=== PATIENT | male | born 1950 | race Caucasian/White ===

== ENCOUNTER → 2019-08-03 | Emergency (ER) | payer MEDICARE, OTHER ==
[~2019-08-03] VITALS: Ht 177.8 cm; Wt 86.2 kg
[~2019-08-03] MED LIST: InsuLIN REG 1unit/0.01ml Soln (100units/ml) IV ONE; SODIUM CHLORIDE 0.9% 1,000 ML IV ONE; cloNIDine HCL 0.1 MG TAB PO ONE
[2019-08-03 19:48] LABS: Basophils # (auto) 0.1 10 ^3/uL (0-0.2); Basophils % (auto) 0.9 % (0.0-2.0); Eosinophils # (auto) 0.4 10 ^3/uL (0-0.8); Eosinophils % (auto) 3.5 % (0.0-7.0); Hematocrit 47.3 % (41.0-53.0); Hemoglobin 15.8 g/dL (13.5-17.5); Lymphocytes % (auto) 27.6 % (10.0-50.0); Mean Corpuscular Hemoglobin 29.1 pg (28.0-32.0); Mean Corpuscular Hgb Conc. 33.3 g/dL (32.0-36.0); Mean Corpuscular Volume 87.5 fL (80.0-100.0); Monocytes % (auto) 9.5 % (0.0-12.0); Neutrophils # (auto) 6.3 10 ^3/uL (1.6-8.6); Neutrophils % (auto) 58.5 % (37.0-80.0); Nucleated Red Blood Cells % 0.1 %; Platelet Count (auto) 220 10^3/uL (140-450); Red Blood Cells 5.41 10^6/uL (4.5-5.90); Red Cell Distribution Width 12.7 % (11.8-14.3); White Blood Cell 10.7 10^3/uL (4.4-10.8)
[2019-08-03 20:03] LABS: INR 1.02 (0.9-1.15); Partial Thromboplastin Time 24.4 sec (23.64-32.05)
[2019-08-03 20:08] LABS: Albumin 3.3 g/dL (3.4-5.0); Anion Gap 7 (5-15); Blood Urea Nitrogen 18 mg/dL (7-18); Calcium 8.8 mg/dL (8.5-10.1); Carbon Dioxide 24 mmol/L (21-32); Chloride 99 mmol/L (98-107); Magnesium 2.4 mg/dL (1.6-2.6); Potassium 4.7 mmol/L (3.5-5.1); Sodium 130 mmol/L (136-145)
[2019-08-03 20:10] LABS: Alanine Aminotransferase 33 U/L (16-61); Aspartate Aminotransferase 22 U/L (15-37); BUN/Creatinine Ratio 15.3; Bilirubin, Total 0.5 mg/dL (0.2-1.0); GFR African American 79 mL/min; GFR Non-African American 65 mL/min; Total Protein 7.3 g/dL (6.4-8.2)
[2019-08-03 20:19] LABS: Alkaline Phosphatase 163 U/L (45-117)
[2019-08-03 20:21] LABS: Glucose 552 mg/dL (74-106)
[2019-08-03 22:41] LABS: Urine Bacteria NONE SEEN /hpf (None Seen); Urine Blood Negative /uL (Negative); Urine Specific Gravity 1.027 (1.001-1.035); Urine WBC 1 /hpf (0 - 3)
[2019-08-03 23:45] VITALS: BP 133/103
== END | disposition home or self-care (01) ==
LOC: EDBD 19:14 → ER 19:14
DX: E11.65 Type 2 diabetes mellitus with hyperglycemia (principal); R42 Dizziness and giddiness
CPT/HCPCS: 36415; 36600; 70450; 71045; 80053; 81001; 82010; 82140; 82805; 82962; 83735; 83880; 84484; 85025; 85610; 85730; 93005; 96361; 96374; 99285; J1815; J7030

== ENCOUNTER → 2019-08-08 | Emergency (ER) | payer MEDICARE ==
[~2019-08-08] VITALS: Ht 177.8 cm; Wt 86.2 kg
[~2019-08-08] MED LIST changes: -InsuLIN REG 1unit/0.01ml Soln (100units/ml) IV ONE; -cloNIDine HCL 0.1 MG TAB PO ONE
[2019-08-08 01:19] LABS: Basophils # (auto) 0.1 10 ^3/uL (0-0.2); Basophils % (auto) 1.2 % (0.0-2.0); Eosinophils # (auto) 0.3 10 ^3/uL (0-0.8); Eosinophils % (auto) 3.5 % (0.0-7.0); Hematocrit 43.5 % (41.0-53.0); Hemoglobin 14.6 g/dL (13.5-17.5); Lymphocytes # (auto) 3.5 10 ^3/uL (0.4-5.4); Lymphocytes % (auto) 34.4 % (10.0-50.0); Mean Corpuscular Hemoglobin 29.3 pg (28.0-32.0); Mean Corpuscular Hgb Conc. 33.6 g/dL (32.0-36.0); Mean Corpuscular Volume 87.4 fL (80.0-100.0); Monocytes # (auto) 1.1 10 ^3/uL (0-1.3); Monocytes % (auto) 10.8 % (0.0-12.0); Neutrophils # (auto) 5.1 10 ^3/uL (1.6-8.6); Neutrophils % (auto) 50.1 % (37.0-80.0); Nucleated Red Blood Cells % 0.1 %; Platelet Count (auto) 241 10^3/uL (140-450); Red Blood Cells 4.98 10^6/uL (4.5-5.90); Red Cell Distribution Width 13.1 % (11.8-14.3); White Blood Cell 10.1 10^3/uL (4.4-10.8)
[2019-08-08 01:35] LABS: Alanine Aminotransferase 31 U/L (16-61); Albumin 3.1 g/dL (3.4-5.0); Anion Gap 7 (5-15); Aspartate Aminotransferase 17 U/L (15-37); BUN/Creatinine Ratio 15.4; Blood Urea Nitrogen 16 mg/dL (7-18); Calcium 8.5 mg/dL (8.5-10.1); Carbon Dioxide 26 mmol/L (21-32); Chloride 102 mmol/L (98-107); GFR African American 92 mL/min; GFR Non-African American 76 mL/min; Glucose 367 mg/dL (74-106); Magnesium 2.2 mg/dL (1.6-2.6); Potassium 4.4 mmol/L (3.5-5.1); Sodium 135 mmol/L (136-145)
[2019-08-08 01:36] LABS: INR 1.07 (0.9-1.15); Partial Thromboplastin Time 25.4 sec (23.64-32.05)
[2019-08-08 01:41] LABS: Alkaline Phosphatase 116 U/L (45-117); Bilirubin, Total 0.6 mg/dL (0.2-1.0); Total Protein 6.9 g/dL (6.4-8.2)
[2019-08-08 02:08] LABS: Amylase 29 U/L (25-115); Lipase 283 U/L (73-393)
[2019-08-08 02:16] LABS: Urine Bacteria NONE SEEN /hpf (None Seen); Urine Blood Negative /uL (Negative); Urine Mucus FEW (None Seen); Urine Specific Gravity 1.024 (1.001-1.035); Urine WBC <1 /hpf (0 - 3)
[2019-08-08 02:50] VITALS: BP 146/104
== END | disposition home or self-care (01) ==
LOC: EDUNIT# 00:29 → EDBD 00:36 → ER 00:39
DX: N20.0 Calculus of kidney (principal); K59.00 Constipation, unspecified; E11.9 Type 2 diabetes mellitus without complications
CPT/HCPCS: 36415; 74176; 80053; 81001; 82010; 82150; 83690; 83735; 83880; 84484; 85025; 85610; 85730

== ENCOUNTER 2021-03-07 22:30 | Emergency (ER) | payer MEDICARE, OTHER ==
[~2021-03-07] VITALS: Ht 177.8 cm; Wt 83.9 kg
[2021-03-07 23:08] VITALS: BP 126/86
[2021-03-08 00:26] LABS: Basophils # (auto) 0.1 10 ^3/uL (0-0.2); Eosinophils # (auto) 0.1 10 ^3/uL (0-0.8); Eosinophils % (auto) 1.1 % (0.0-7.0); Hematocrit 44.9 % (41.0-53.0); Hemoglobin 15.1 g/dL (13.5-17.5); Lymphocytes # (auto) 2.6 10 ^3/uL (0.4-5.4); Lymphocytes % (auto) 27.1 % (10.0-50.0); Mean Corpuscular Hemoglobin 29.8 pg (28.0-32.0); Mean Corpuscular Hgb Conc. 33.7 g/dL (32.0-36.0); Mean Corpuscular Volume 88.6 fL (80.0-100.0); Monocytes # (auto) 0.8 10 ^3/uL (0-1.3); Monocytes % (auto) 8.9 % (0.0-12.0); Neutrophils # (auto) 5.8 10 ^3/uL (1.6-8.6); Neutrophils % (auto) 61.9 % (37.0-80.0); Nucleated Red Blood Cells % 0.1 %; Red Blood Cells 5.07 10^6/uL (4.5-5.90); Red Cell Distribution Width 12.6 % (11.8-14.3); White Blood Cell 9.4 10^3/uL (4.4-10.8)
[2021-03-08 01:15] LABS: Albumin 3.5 g/dL (3.4-5.0); Calcium 9.1 mg/dL (8.5-10.1); Potassium 4.1 mmol/L (3.5-5.1)
[2021-03-08 01:20] LABS: BUN/Creatinine Ratio 8.7; Bilirubin, Total 0.6 mg/dL (0.2-1.0); Total Protein 7.4 g/dL (6.4-8.2)
== END 2021-03-08 04:30 | disposition left against medical advice (07) ==
LOC: EDBD 22:30 → EDUNIT# 22:30 → EDBD 22:39 → ER 22:39
DX: E11.649 Type 2 diabetes mellitus with hypoglycemia without coma (principal)
CPT/HCPCS: 36415; 70450; 71045; 80053; 84484; 85025; 93005

== ENCOUNTER 2022-11-15 19:31 | Inpatient (IN) | payer BC, OTHER ==
[2022-11-15] VITALS (11 sets, daily range): BP systolic 121–172; BP diastolic 66–133; PULSE 68–103; RESP 18–20; TEMP 97.6–98.2; O2SAT 95–99
[~2022-11-15] VITALS: Ht 167.6 cm; Wt 79.9 kg
[2022-11-15] MEDS ORDERED: HEPARIN SODIUM (PORCINE) 5000 UNITS/ML 1ML VIAL IV ONE ×2 (20:00→20:15)
[2022-11-15] MEDS ORDERED: TICAGRELOR 90 MG TAB PO ONE ×2 (20:00→20:15)
[2022-11-15] MEDS ORDERED: ASPirin 325 MG TAB PO ONE (20:00)
[2022-11-15 20:12] LABS: Basophils # (auto) 0.1 10 ^3/uL (0-0.2); Basophils % (auto) 1.2 % (0.0-2.0); Eosinophils # (auto) 0.3 10 ^3/uL (0-0.8); Eosinophils % (auto) 3.7 % (0.0-7.0); Hematocrit 46.5 % (41.0-53.0); Hemoglobin 15.3 g/dL (13.5-17.5); Lymphocytes % (auto) 22.8 % (10.0-50.0); Mean Corpuscular Hemoglobin 29.1 pg (28.0-32.0); Mean Corpuscular Hgb Conc. 32.9 g/dL (32.0-36.0); Mean Corpuscular Volume 88.2 fL (80.0-100.0); Monocytes # (auto) 0.7 10 ^3/uL (0-1.3); Monocytes % (auto) 8.3 % (0.0-12.0); Neutrophils # (auto) 5.7 10 ^3/uL (1.6-8.6); Nucleated Red Blood Cells % 0.2 %; Red Blood Cells 5.27 10^6/uL (4.5-5.90); White Blood Cell 8.9 10^3/uL (4.4-10.8)
[2022-11-15] MEDS ORDERED: ATROPINE SULF 1 MG/10ml SYR ONE (20:14)
[2022-11-15] MEDS ORDERED: VERAPAMIL 2.5MG/ML INJ 2ML VIAL IV ONE (20:14)
[2022-11-15] MEDS ORDERED: LIDOCAINE 2%HCL (LOCAL ANESTH.) INJ 20ML MDV ONE (20:15)
[2022-11-15] MEDS ORDERED: fentaNYL CITRATE 100 MCG/2 ML VL ONE (20:15)
[2022-11-15] MEDS ORDERED: MIDAZOLAM HCL 2MG/2ML 2ml VIAL (1mg/ml) ONE (20:15)
[2022-11-15] MEDS ORDERED: HEPARIN IN NS 1000Units/500mL 1,500 ML ONE (20:16)
[2022-11-15] MEDS ORDERED: SODIUM CHL 0.9% 50 ML ONE (20:18)
[2022-11-15] MEDS ORDERED: ANGIOMAX 250 MG VIAL IV ONE (20:18)
[2022-11-15 20:31] LABS: INR 1.08 (0.9-1.15); Partial Thromboplastin Time 27.3 SEC (24.5-34.5); Prothrombin Time 11.3 sec (9.3-11.8)
[2022-11-15 20:32] LABS: Alanine Aminotransferase 13 U/L (7-40); Albumin 4.1 g/dL (3.2-4.8); Alkaline Phosphatase 111 U/L (46-116); Anion Gap 10.4 (5-15); Aspartate Aminotransferase 17 U/L (13-40); BUN/Creatinine Ratio 10.9 (10.0-20.0); Bilirubin, Total 1.2 mg/dL (0.2-1.0); Blood Urea Nitrogen 10 mg/dL (9-23); Carbon Dioxide 23.6 mmol/L (20-30); Chloride 104 mmol/L (98-107); Cholesterol 158 mg/dL (< 200); Glucose 265 mg/dL (74-106); HDL Cholesterol 36 mg/dL (40-59); LDL Cholesterol 106 mg/dL (< 100); Potassium 4.2 mmol/L (3.5-5.1); Sodium 138 mmol/L (136-145); Triglycerides 186 mg/dL (< 150)
[2022-11-15 20:33] LABS: Total Protein 6.6 g/dL (5.7-8.2)
[2022-11-15] MEDS ORDERED: IODIXANOL 320MG/ML 100ML BTL IV ONE (20:36)
[2022-11-15] MEDS ORDERED: EPINEPHrine HCL 1 MG/10 ML SYRG ONE (20:41)
[2022-11-15] MEDS ORDERED: DEXTROSE (50%) 50ML SYRG IV ONE (23:30)
[2022-11-15] MEDS ORDERED: hydrALAZINE HCL 20 MG/ML VL IV ONE (23:30)
[2022-11-16] VITALS (13 sets, daily range): BP systolic 94–137; BP diastolic 40–81; PULSE 59–152; RESP 16–20; TEMP 97.6–98.6; O2SAT 94–99
[2022-11-16] MEDS: ACCU-CHEK COMFORT CURVE STRIP VI SCH ×6 (00:43→22:28)
[2022-11-16] MEDS: InsuLIN REG 1unit/0.01ml Soln (100units/ml) SC SCH ×5 (00:44→22:20)
[2022-11-16] MEDS: MORPHINE SULFATE INJ 2 MG/ml SYRG IV PRN ×2 (02:29→17:53)
[2022-11-16 06:06] LABS: Basophils # (auto) 0.1 10 ^3/uL (0-0.2); Basophils % (auto) 0.7 % (0.0-2.0); Eosinophils # (auto) 0.3 10 ^3/uL (0-0.8); Eosinophils % (auto) 2.2 % (0.0-7.0); Hematocrit 45.6 % (41.0-53.0); Hemoglobin 15.4 g/dL (13.5-17.5); Lymphocytes # (auto) 2.3 10 ^3/uL (0.4-5.4); Lymphocytes % (auto) 20.8 % (10.0-50.0); Mean Corpuscular Hemoglobin 29.4 pg (28.0-32.0); Mean Corpuscular Hgb Conc. 33.6 g/dL (32.0-36.0); Mean Corpuscular Volume 87.5 fL (80.0-100.0); Monocytes # (auto) 1.1 10 ^3/uL (0-1.3); Monocytes % (auto) 9.8 % (0.0-12.0); Neutrophils # (auto) 7.5 10 ^3/uL (1.6-8.6); Neutrophils % (auto) 66.5 % (37.0-80.0); Nucleated Red Blood Cells % 0.1 %; Red Blood Cells 5.22 10^6/uL (4.5-5.90); Red Cell Distribution Width 12.9 % (11.8-14.3); White Blood Cell 11.3 10^3/uL (4.4-10.8)
[2022-11-16] MEDS ORDERED: MORPHINE SULFATE INJ 2 MG/ml SYRG IV PRN (06:15)
[2022-11-16] MEDS ORDERED: hydrALAZINE HCL 10 MG TAB PO PRN (06:15)
[2022-11-16] MEDS ORDERED: ONDANSETRON HCL 4 MG/2 ML VIAL IV PRN (06:15)
[2022-11-16 06:22] LABS: Alanine Aminotransferase 27 U/L (7-40); Albumin 3.8 g/dL (3.2-4.8); Alkaline Phosphatase 102 U/L (46-116); Anion Gap 8.3 (5-15); Aspartate Aminotransferase 167 U/L (13-40); BUN/Creatinine Ratio 12.1 (10.0-20.0); Blood Urea Nitrogen 11 mg/dL (9-23); Calcium 8.9 mg/dL (8.7-10.4); Carbon Dioxide 23.7 mmol/L (20-30); Chloride 106 mmol/L (98-107); Glucose 209 mg/dL (74-106); Sodium 138 mmol/L (136-145)
[2022-11-16 06:23] LABS: Bilirubin, Total 1.2 mg/dL (0.2-1.0); Total Protein 6.2 g/dL (5.7-8.2)
[2022-11-16] MEDS ORDERED: METF-370 PO (07:45)
[2022-11-16] MEDS ORDERED: SEMA2INJ3 SC (07:45)
[2022-11-16] MEDS ORDERED: FURO40TA4 PO (07:45)
[2022-11-16] MEDS ORDERED: TAMS0.4C36 PO (07:45)
[2022-11-16] MEDS ORDERED: APIX5TAB PO (07:45)
[2022-11-16] MEDS ORDERED: SIMV20TA20 PO (07:45)
[2022-11-16] MEDS ORDERED: POTA-180 (07:45)
[2022-11-16] MEDS ORDERED: METO-289 PO (07:45)
[2022-11-16] MEDS ORDERED: METOPROLOL SUCCINATE XL 50 MG TAB PO SCH (10:00)
[2022-11-16 10:35] LABS: Hepatitis B Surface Antigen Negative (Negative)
[2022-11-16 10:56] LABS: Hepatitis C Antibody Negative (Negative)
[2022-11-16] MEDS: ASPirin-EC 81 mg tab PO SCH (11:45)
[2022-11-16] MEDS: metFORMIN HYDROCHLORIDE 500 MG TAB PO SCH (13:38)
[2022-11-16] MEDS: NITROGLYCERIN 0.4 MG SL TAB SL PRN ×2 (17:51→17:57)
[2022-11-16] MEDS: SOD CHL 0.45% 1,000 ML IV SCH (18:22)
[2022-11-16] MEDS ORDERED: TICAGRELOR 90 MG TAB PO STA (18:28)
[2022-11-16] MEDS ORDERED: ENOXAPARIN SOD 80 MG/0.8ML SYRINGE SC ONE (18:45)
[2022-11-16] MEDS ORDERED: IBUP-1454 PO (20:01)
[2022-11-16] MEDS ORDERED: ATORVASTATIN 20 MG TAB PO SCH (22:00)
[2022-11-16] MEDS ORDERED: TICAGRELOR 90 MG TAB PO SCH (22:00)
[2022-11-17] VITALS (10 sets, daily range): BP systolic 106–135; BP diastolic 57–101; PULSE 61–108; RESP 12–23; TEMP 98.3; O2SAT 94–98
[2022-11-17 00:19] LABS: Urine Bacteria NONE SEEN /hpf (None Seen); Urine Blood Negative /uL (Negative); Urine Clarity Clear (Clear); Urine Color Yellow (Yellow); Urine Mucus FEW (None Seen); Urine Protein, UAD Negative (Negative); Urine Specific Gravity 1.019 (1.001-1.035); Urine Urobilinogen Normal (Negative); Urine WBC 1 /hpf (0 - 3); Urine pH 6.5 (5.0-8.0)
[2022-11-17 05:52] LABS: Basophils # (auto) 0.1 10 ^3/uL (0-0.2); Basophils % (auto) 0.7 % (0.0-2.0); Eosinophils # (auto) 0.3 10 ^3/uL (0-0.8); Eosinophils % (auto) 2.2 % (0.0-7.0); Hematocrit 45.1 % (41.0-53.0); Hemoglobin 14.9 g/dL (13.5-17.5); Lymphocytes # (auto) 2.7 10 ^3/uL (0.4-5.4); Lymphocytes % (auto) 22.9 % (10.0-50.0); Mean Corpuscular Hemoglobin 28.8 pg (28.0-32.0); Mean Corpuscular Hgb Conc. 33.1 g/dL (32.0-36.0); Mean Corpuscular Volume 87.1 fL (80.0-100.0); Monocytes # (auto) 1.1 10 ^3/uL (0-1.3); Monocytes % (auto) 9.5 % (0.0-12.0); Neutrophils # (auto) 7.6 10 ^3/uL (1.6-8.6); Neutrophils % (auto) 64.7 % (37.0-80.0); Red Blood Cells 5.17 10^6/uL (4.5-5.90); Red Cell Distribution Width 13.3 % (11.8-14.3); White Blood Cell 11.8 10^3/uL (4.4-10.8)
[2022-11-17 06:08] LABS: Alanine Aminotransferase 20 U/L (7-40); Albumin 3.8 g/dL (3.2-4.8); Alkaline Phosphatase 93 U/L (46-116); Anion Gap 7.5 (5-15); Aspartate Aminotransferase 74 U/L (13-40); BUN/Creatinine Ratio 10.2 (10.0-20.0); Blood Urea Nitrogen 9 mg/dL (9-23); Calcium 8.8 mg/dL (8.7-10.4); Carbon Dioxide 22.5 mmol/L (20-30); Chloride 107 mmol/L (98-107); Glucose 171 mg/dL (74-106); Sodium 137 mmol/L (136-145)
[2022-11-17 06:09] LABS: Bilirubin, Total 1.4 mg/dL (0.2-1.0); Total Protein 6.5 g/dL (5.7-8.2)
[2022-11-17] MEDS: InsuLIN REG 1unit/0.01ml Soln (100units/ml) SC SCH ×2 (06:25→11:14)
[2022-11-17] MEDS: ACCU-CHEK COMFORT CURVE STRIP VI SCH ×2 (06:29→11:14)
[2022-11-17] MEDS ORDERED: EMPAGLIFLOZIN 10 MG TAB PO SCH (07:00)
[2022-11-17] MEDS ORDERED: TICAGRELOR 90 MG TAB PO SCH (07:00)
[2022-11-17] MEDS ORDERED: glipiZIDE 5 MG TAB PO SCH (07:00)
[2022-11-17] MEDS: SOD CHL 0.45% 1,000 ML IV SCH (07:35)
[2022-11-17] MEDS: metFORMIN HYDROCHLORIDE 500 MG TAB PO SCH (07:36)
[2022-11-17] MEDS ORDERED: IODIXANOL 320MG/ML 100ML BTL IV ONE ×4 (07:42→09:01)
[2022-11-17] MEDS ORDERED: MIDAZOLAM HCL 2MG/2ML 2ml VIAL (1mg/ml) ONE (07:42)
[2022-11-17] MEDS ORDERED: fentaNYL CITRATE 100 MCG/2 ML VL ONE (07:42)
[2022-11-17] MEDS ORDERED: LIDOCAINE 2%HCL (LOCAL ANESTH.) INJ 20ML MDV ONE (07:42)
[2022-11-17] MEDS ORDERED: SODIUM CHL 0.9% 50 ML ONE ×2 (07:42→08:32)
[2022-11-17] MEDS ORDERED: ANGIOMAX 250 MG VIAL IV ONE ×2 (07:42→08:32)
[2022-11-17] MEDS ORDERED: VERAPAMIL 2.5MG/ML INJ 2ML VIAL IV ONE (07:45)
[2022-11-17] MEDS ORDERED: HEPARIN SODIUM (PORCINE) 5000 UNITS/ML 1ML VIAL ONE (07:45)
[2022-11-17] MEDS: MORPHINE SULFATE INJ 2 MG/ml SYRG IV PRN (09:45)
[2022-11-17] MEDS: ASPirin-EC 81 mg tab PO SCH (09:52)
[2022-11-17] MEDS ORDERED: METOPROLOL SUCCINATE XL 50 MG TAB PO SCH (10:00)
[2022-11-17] MEDS ORDERED: LISINOPRIL 5 MG TAB PO SCH (10:00)
[2022-11-17] MEDS ORDERED: RANOLAZINE ER 500 MG TAB PO SCH (10:00)
[2022-11-17] MEDS: NITROGLYCERIN 0.4 MG SL TAB SL PRN ×2 (10:35→10:59)
== END 2022-11-17 14:39 | disposition left against medical advice (07) | DRG 246 ==
LOC: EDBD 19:31 → ER 19:31 → TELE 20:58 → TELE-WESTW 22:15
PROVIDERS: ADMIT Internal Medicine Interventional Cardiology; ATTEND Hospitalist
PROC: 027037Z Dilation of Coronary Artery, One Artery with Four or More Drug-eluting Intraluminal Devices, Percutaneous Approach (ICD-10-PCS; principal; 2022-11-15)
PROC: 4A023N7 Measurement of Cardiac Sampling and Pressure, Left Heart, Percutaneous Approach (ICD-10-PCS; 2022-11-15)
PROC: B211YZZ Fluoroscopy of Multiple Coronary Arteries using Other Contrast (ICD-10-PCS; 2022-11-15)
PROC: 027137Z Dilation of Coronary Artery, Two Arteries with Four or More Drug-eluting Intraluminal Devices, Percutaneous Approach (ICD-10-PCS; 2022-11-17)
DX: I21.02 ST elevation (STEMI) myocardial infarction involving left anterior descending coronary artery (principal); E11.9 Type 2 diabetes mellitus without complications; I25.10 Atherosclerotic heart disease of native coronary artery without angina pectoris; I10 Essential (primary) hypertension; Z82.49 Family history of ischemic heart disease and other diseases of the circulatory system; Z83.3 Family history of diabetes mellitus; Z86.73 Personal history of transient ischemic attack (TIA), and cerebral infarction without residual deficits; Z53.29 Procedure and treatment not carried out because of patient's decision for other reasons
CPT/HCPCS: 36415; 71045; 76937; 80053; 80061; 81001; 82962; 83036; 83735; 83880; 84443; 84484; 85025; 85610; 85730; 86803; 86850; 86900; 86901; 87340; 92929; 92941; 93005; 93306; 93458; 96374; 99152; C1874; C1887; G0378; J1815; J2250; Q9967

== ENCOUNTER 2022-11-25 11:23 | Inpatient (IN) | payer BC ==
[~2022-11-25] VITALS: Ht 167.6 cm; Wt 77.9 kg
[~2022-11-25 11:23] MED LIST changes: +APIX5TAB PO; +FURO40TA4 PO; +IBUP-1454 PO; +METF-370 PO; +METO-289 PO; +POTA-180; +SEMA2INJ3 SC; +SIMV20TA20 PO; -SODIUM CHLORIDE 0.9% 1,000 ML IV ONE; +TAMS0.4C36 PO
[2022-11-25] MEDS ORDERED: ONDANSETRON HCL 4 MG/2 ML VIAL IV ONE (12:15)
[2022-11-25] MEDS ORDERED: SODIUM CHLORIDE 0.9% 1,000 ML IV ONE (12:15)
[2022-11-25] MEDS ORDERED: MORPHINE SULFATE 4 MG/ML SYR/VIAL IV PRN (12:15)
[2022-11-25 12:33] LABS: Basophils # (auto) 0.1 10 ^3/uL (0-0.2); Basophils % (auto) 0.7 % (0.0-2.0); Eosinophils # (auto) 0.3 10 ^3/uL (0-0.8); Eosinophils % (auto) 2.7 % (0.0-7.0); Hematocrit 38.1 % (41.0-53.0); Hemoglobin 12.7 g/dL (13.5-17.5); Lymphocytes # (auto) 2.3 10 ^3/uL (0.4-5.4); Lymphocytes % (auto) 21.6 % (10.0-50.0); Mean Corpuscular Hemoglobin 29.1 pg (28.0-32.0); Mean Corpuscular Hgb Conc. 33.4 g/dL (32.0-36.0); Mean Corpuscular Volume 87.1 fL (80.0-100.0); Monocytes % (auto) 9.4 % (0.0-12.0); Neutrophils % (auto) 65.6 % (37.0-80.0); Red Blood Cells 4.38 10^6/uL (4.5-5.90); Red Cell Distribution Width 12.6 % (11.8-14.3); White Blood Cell 10.7 10^3/uL (4.4-10.8)
[2022-11-25 12:35] VITALS: PULSE 69; RESP 12; O2SAT 97
[2022-11-25 12:42] LABS: Alanine Aminotransferase 15 U/L (7-40); Albumin 3.9 g/dL (3.2-4.8); Alkaline Phosphatase 96 U/L (46-116); Aspartate Aminotransferase 14 U/L (13-40); BUN/Creatinine Ratio 8.3 (10.0-20.0); Bilirubin, Total 0.5 mg/dL (0.2-1.0); Blood Urea Nitrogen 8 mg/dL (9-23); Calcium 8.7 mg/dL (8.5-10.1); Chloride 105 mmol/L (98-107); Glucose 200 mg/dL (74-106); Magnesium 1.9 mg/dL (1.6-2.6); Sodium 136 mmol/L (136-145); Total Protein 6.7 g/dL (5.7-8.2)
[2022-11-25 13:23] LABS: INR 1.14 (0.9-1.15); Partial Thromboplastin Time 29.1 SEC (24.5-34.5); Prothrombin Time 11.9 sec (9.3-11.8)
[2022-11-25] MEDS ORDERED: PANTOPRAZOLE 40 MG/10 ML VIAL INJ IV ONE (14:30)
[2022-11-25] MEDS ORDERED: MORPHINE SULFATE INJ 2 MG/ml SYRG IV ONE (14:30)
[2022-11-25] MEDS ORDERED: ONDANSETRON HCL 4 MG/2 ML VIAL IV PRN (15:45)
[2022-11-25] MEDS ORDERED: HEPARIN DRIP/D5W 100UNITS/ML 250 ML IV SCH (15:45)
[2022-11-25] MEDS ORDERED: MORPHINE SULFATE INJ 2 MG/ml SYRG IV PRN ×2 (15:45)
[2022-11-25] MEDS ORDERED: NITROGLYCERIN 0.4 MG SL TAB SL PRN (15:45)
[2022-11-25] MEDS ORDERED: HEPARIN SODIUM (PORCINE) 5000 UNITS/ML 1ML VIAL IV ONE ×2 (15:45→17:30)
[2022-11-25 16:11] LABS: Basophils # (auto) 0.1 10 ^3/uL (0-0.2); Basophils % (auto) 0.7 % (0.0-2.0); Eosinophils # (auto) 0.2 10 ^3/uL (0-0.8); Eosinophils % (auto) 1.7 % (0.0-7.0); Hematocrit 36.8 % (41.0-53.0); Hemoglobin 12.1 g/dL (13.5-17.5); Lymphocytes # (auto) 2.3 10 ^3/uL (0.4-5.4); Lymphocytes % (auto) 19.8 % (10.0-50.0); Mean Corpuscular Hemoglobin 28.6 pg (28.0-32.0); Mean Corpuscular Hgb Conc. 32.8 g/dL (32.0-36.0); Monocytes % (auto) 8.5 % (0.0-12.0); Neutrophils # (auto) 8.1 10 ^3/uL (1.6-8.6); Neutrophils % (auto) 69.3 % (37.0-80.0); Nucleated Red Blood Cells % 0.1 %; Red Blood Cells 4.23 10^6/uL (4.5-5.90); Red Cell Distribution Width 12.8 % (11.8-14.3); White Blood Cell 11.6 10^3/uL (4.4-10.8)
[2022-11-25 17:13] LABS: INR 1.13 (0.9-1.15); Partial Thromboplastin Time 29.6 SEC (24.5-34.5); Prothrombin Time 11.8 sec (9.3-11.8)
[2022-11-25] MEDS: SODIUM CHLORIDE 0.9% 1,000 ML IV SCH (17:15)
[2022-11-25 17:22] LABS: Lipase 51 U/L (12-53)
[2022-11-25 17:23] LABS: Amylase 44 U/L (30-118)
[2022-11-25] MEDS ORDERED: LISI2.5T47 PO (17:43)
[2022-11-25] MEDS ORDERED: ASPirin 325 MG TAB PO ONE (17:45)
[2022-11-25] MEDS: CLOPIDOGREL 300 MG TAB PO ONE ×2 (17:55→18:18)
[2022-11-25 18:11] VITALS: PULSE 72; RESP 16; O2SAT 95
[2022-11-25 20:10] VITALS: PULSE 80; RESP 15; O2SAT 93
[2022-11-25] MEDS ORDERED: APIXABAN 5 MG TAB PO SCH (22:00)
[2022-11-25] MEDS: ATORVASTATIN 20 MG TAB PO SCH (22:25)
[2022-11-26] MEDS: SODIUM CHLORIDE 0.9% 1,000 ML IV SCH ×3 (00:05→16:50)
[2022-11-26 00:13] LABS: INR 1.13 (0.9-1.15); Partial Thromboplastin Time 37.8 SEC (24.5-34.5); Prothrombin Time 11.8 sec (9.3-11.8)
[2022-11-26] MEDS ORDERED: DEXTROSE (50%) 50ML SYRG IV PRN (02:15)
[2022-11-26 06:11] LABS: Basophils # (auto) 0.1 10 ^3/uL (0-0.2); Basophils % (auto) 0.5 % (0.0-2.0); Eosinophils # (auto) 0.1 10 ^3/uL (0-0.8); Eosinophils % (auto) 0.5 % (0.0-7.0); Hematocrit 36.3 % (41.0-53.0); Hemoglobin 12.2 g/dL (13.5-17.5); INR 1.16 (0.9-1.15); Lymphocytes # (auto) 1.6 10 ^3/uL (0.4-5.4); Lymphocytes % (auto) 11.5 % (10.0-50.0); Mean Corpuscular Hemoglobin 29.1 pg (28.0-32.0); Mean Corpuscular Hgb Conc. 33.6 g/dL (32.0-36.0); Mean Corpuscular Volume 86.7 fL (80.0-100.0); Monocytes # (auto) 1.3 10 ^3/uL (0-1.3); Monocytes % (auto) 9.3 % (0.0-12.0); Neutrophils # (auto) 11.2 10 ^3/uL (1.6-8.6); Neutrophils % (auto) 78.2 % (37.0-80.0); Partial Thromboplastin Time 38.3 SEC (24.5-34.5); Prothrombin Time 12.1 sec (9.3-11.8); Red Blood Cells 4.19 10^6/uL (4.5-5.90); Red Cell Distribution Width 12.8 % (11.8-14.3); White Blood Cell 14.3 10^3/uL (4.4-10.8)
[2022-11-26 06:23] LABS: Alanine Aminotransferase 12 U/L (7-40); Alkaline Phosphatase 89 U/L (46-116); Aspartate Aminotransferase 14 U/L (13-40); BUN/Creatinine Ratio 8.9 (10.0-20.0); Blood Urea Nitrogen 7 mg/dL (9-23); Calcium 8.6 mg/dL (8.5-10.1); Chloride 103 mmol/L (98-107); Glucose 168 mg/dL (74-106); Potassium 4.1 mmol/L (3.5-5.1); Sodium 134 mmol/L (136-145)
[2022-11-26 06:24] LABS: Albumin 3.7 g/dL (3.2-4.8); Bilirubin, Total 0.7 mg/dL (0.2-1.0); Total Protein 6.4 g/dL (5.7-8.2)
[2022-11-26 06:25] LABS: Anion Gap 7.4 (5-15); Carbon Dioxide 23.6 mmol/L (20-30)
[2022-11-26] MEDS: InsuLIN REG 1unit/0.01ml Soln (100units/ml) SC SCH ×3 (06:57→17:41)
[2022-11-26] MEDS: ACCU-CHEK COMFORT CURVE STRIP VI SCH ×3 (06:57→17:41)
[2022-11-26] MEDS ORDERED: HEPARIN DRIP/D5W 100UNITS/ML 250 ML IV SCH (07:30)
[2022-11-26 08:41] VITALS: PULSE 78; RESP 20; O2SAT 94
[2022-11-26] MEDS: FUROSEMIDE 40 MG TAB PO SCH (10:00)
[2022-11-26] MEDS: METOPROLOL SUCCINATE XL 50 MG TAB PO SCH (10:53)
[2022-11-26] MEDS: CLOPIDOGREL BISULFATE 75 MG TAB PO SCH ×2 (10:55→12:41)
[2022-11-26] MEDS: ASPirin 81 mg TAB PO SCH ×2 (10:55→12:41)
[2022-11-26 11:28] LABS: Amphetamine Screen, Urine Neg (NEGATIVE); Benzodiazephine Screen, Urine Neg (NEGATIVE)
[2022-11-26 11:29] LABS: Barbiturate Scree,Urine Neg (NEGATIVE); Cannabinoid Screen, Urine Neg (NEGATIVE); Cocaine Screen, Urine Neg (NEGATIVE); Opiate Scree,Urine Neg (NEGATIVE); Phencyclidine Screen, Urine Neg (NEGATIVE)
[2022-11-26 12:27] LABS: Urine Bacteria NONE SEEN /hpf (None Seen); Urine Blood Negative /uL (Negative); Urine Clarity Clear (Clear); Urine Color Yellow (Yellow); Urine Protein, UAD Negative (Negative); Urine Specific Gravity 1.014 (1.001-1.035); Urine Urobilinogen Normal (Negative); Urine WBC <1 /hpf (0 - 3); Urine pH 5.5 (5.0-8.0)
[2022-11-26] MEDS: HEPARIN DRIP/D5W 100UNITS/ML 250 ML IV SCH (14:26)
[2022-11-26] MEDS: ACETAMINOPHEN 325 MG TAB PO PRN (18:37)
[2022-11-26 19:40] VITALS: RESP 22; O2SAT 94
[2022-11-26 21:05] LABS: INR 1.38 (0.9-1.15); Partial Thromboplastin Time 65.9 SEC (24.5-34.5); Prothrombin Time 14.2 sec (9.3-11.8)
[2022-11-26 22:00] VITALS: BP 110/65; PULSE 88; RESP 16; TEMP 99.2; O2SAT 96
[2022-11-26 22:28] VITALS: BP 110/65; PULSE 88; RESP 16; TEMP 99.2; O2SAT 96
[2022-11-26] MEDS: ATORVASTATIN 20 MG TAB PO SCH (22:54)
[2022-11-27] VITALS (7 sets, daily range): BP systolic 106–126; BP diastolic 50–72; PULSE 65–105; RESP 15–20; TEMP 98–100; O2SAT 90–96
[2022-11-27] MEDS: ACCU-CHEK COMFORT CURVE STRIP VI SCH ×5 (01:01→21:30)
[2022-11-27] MEDS: InsuLIN REG 1unit/0.01ml Soln (100units/ml) SC SCH ×5 (01:09→21:29)
[2022-11-27 04:27] LABS: INR 1.4 (0.9-1.15); Prothrombin Time 14.4 sec (9.3-11.8)
[2022-11-27 04:32] LABS: Partial Thromboplastin Time 76.9 SEC (24.5-34.5)
[2022-11-27] MEDS: HEPARIN DRIP/D5W 100UNITS/ML 250 ML IV SCH (04:53)
[2022-11-27] MEDS: SODIUM CHLORIDE 0.9% 1,000 ML IV SCH ×3 (04:56→17:40)
[2022-11-27] MEDS: EMPAGLIFLOZIN 10 MG TAB PO SCH (06:03)
[2022-11-27] MEDS: ASPirin 81 mg TAB PO SCH (12:12)
[2022-11-27] MEDS: CLOPIDOGREL BISULFATE 75 MG TAB PO SCH (12:13)
[2022-11-27] MEDS: FUROSEMIDE 40 MG TAB PO SCH (12:13)
[2022-11-27] MEDS: METOPROLOL SUCCINATE XL 50 MG TAB PO SCH (12:13)
[2022-11-27 12:30] LABS: INR 1.54 (0.9-1.15); Partial Thromboplastin Time 49.4 SEC (24.5-34.5); Prothrombin Time 15.7 sec (9.3-11.8)
[2022-11-27] MEDS ORDERED: HEPARIN DRIP/D5W 100UNITS/ML 250 ML IV SCH (13:00)
[2022-11-27] MEDS: ACETAMINOPHEN 325 MG TAB PO PRN (21:13)
[2022-11-27] MEDS: ATORVASTATIN 20 MG TAB PO SCH (21:14)
[2022-11-27] MEDS: LACTULOSE 20Gm/30ML SOLN PO SCH (21:14)
[2022-11-28] MEDS: SODIUM CHLORIDE 0.9% 1,000 ML IV SCH ×3 (02:05→17:45)
[2022-11-28 05:00] VITALS: BP 102/63; PULSE 95; RESP 20; TEMP 99; O2SAT 97
[2022-11-28] MEDS: LACTULOSE 20Gm/30ML SOLN PO SCH ×3 (05:29→23:07)
[2022-11-28] MEDS: ACCU-CHEK COMFORT CURVE STRIP VI SCH ×4 (05:29→23:07)
[2022-11-28] MEDS: EMPAGLIFLOZIN 10 MG TAB PO SCH (05:29)
[2022-11-28] MEDS: InsuLIN REG 1unit/0.01ml Soln (100units/ml) SC SCH ×4 (05:29→23:18)
[2022-11-28 08:30] VITALS: PULSE 100; PULSE 115; RESP 20; O2SAT 96
[2022-11-28 09:11] VITALS: BP 116/65; PULSE 104; RESP 19; TEMP 98; O2SAT 98
[2022-11-28] MEDS: CLOPIDOGREL BISULFATE 75 MG TAB PO SCH (09:42)
[2022-11-28] MEDS: ASPirin 81 mg TAB PO SCH (09:42)
[2022-11-28] MEDS: METOPROLOL SUCCINATE XL 50 MG TAB PO SCH (09:43)
[2022-11-28] MEDS: FUROSEMIDE 40 MG TAB PO SCH (09:43)
[2022-11-28 13:00] VITALS: BP 115/65; PULSE 110; RESP 19; TEMP 98.9; O2SAT 94
[2022-11-28 20:00] VITALS: PULSE 105; PULSE 125; RESP 20; O2SAT 95
[2022-11-28 22:00] VITALS: BP 103/57; PULSE 105; RESP 20; TEMP 97.6; O2SAT 95
[2022-11-28] MEDS: ATORVASTATIN 20 MG TAB PO SCH (23:07)
[2022-11-29] VITALS (7 sets, daily range): BP systolic 95–122; BP diastolic 51–76; PULSE 71–119; RESP 17–20; TEMP 98–98.9; O2SAT 92–96
[2022-11-29] MEDS: HYDROcodone-ACET 5/325MG TAB PO PRN (01:26)
[2022-11-29] MEDS: SODIUM CHLORIDE 0.9% 1,000 ML IV SCH ×2 (03:05→11:25)
[2022-11-29] MEDS: InsuLIN REG 1unit/0.01ml Soln (100units/ml) SC SCH ×4 (06:00→23:24)
[2022-11-29] MEDS: LACTULOSE 20Gm/30ML SOLN PO SCH ×4 (06:27→21:59)
[2022-11-29] MEDS: ACCU-CHEK COMFORT CURVE STRIP VI SCH ×4 (06:27→23:23)
[2022-11-29] MEDS: EMPAGLIFLOZIN 10 MG TAB PO SCH (06:27)
[2022-11-29] MEDS: CLOPIDOGREL BISULFATE 75 MG TAB PO SCH (09:35)
[2022-11-29] MEDS: ASPirin 81 mg TAB PO SCH (09:35)
[2022-11-29] MEDS: FUROSEMIDE 40 MG TAB PO SCH (09:36)
[2022-11-29] MEDS: METOPROLOL SUCCINATE XL 50 MG TAB PO SCH (09:36)
[2022-11-29] MEDS ORDERED: LISI2.5T47 PO (13:09)
[2022-11-29] MEDS ORDERED: METO-289 PO (13:09)
[2022-11-29] MEDS ORDERED: CLOP75TA70 PO (13:09)
[2022-11-29] MEDS ORDERED: ATOR20TA50 PO (13:09)
[2022-11-29] MEDS ORDERED: FURO40TA4 PO (13:09)
[2022-11-29] MEDS ORDERED: APIX5TAB PO (13:09)
[2022-11-29] MEDS ORDERED: DIGOXIN (250MCG/ML) 2 ML AMPULE IV ONE (13:15)
[2022-11-29] MEDS ORDERED: dilTIAZem 25 MG/5 ML VIAL IV ONE ×2 (14:30)
[2022-11-29 15:21] LABS: Basophils # (auto) 0 10 ^3/uL (0-0.2); Basophils % (auto) 0.3 % (0.0-2.0); Eosinophils # (auto) 0.3 10 ^3/uL (0-0.8); Eosinophils % (auto) 2.1 % (0.0-7.0); Hematocrit 38.8 % (41.0-53.0); Hemoglobin 12.7 g/dL (13.5-17.5); Lymphocytes # (auto) 1.3 10 ^3/uL (0.4-5.4); Lymphocytes % (auto) 8.7 % (10.0-50.0); Mean Corpuscular Hemoglobin 28.4 pg (28.0-32.0); Mean Corpuscular Hgb Conc. 32.9 g/dL (32.0-36.0); Mean Corpuscular Volume 86.4 fL (80.0-100.0); Monocytes # (auto) 1.2 10 ^3/uL (0-1.3); Monocytes % (auto) 8.2 % (0.0-12.0); Neutrophils # (auto) 11.9 10 ^3/uL (1.6-8.6); Neutrophils % (auto) 80.7 % (37.0-80.0); Nucleated Red Blood Cells % 0.1 %; Red Blood Cells 4.49 10^6/uL (4.5-5.90); Red Cell Distribution Width 12.9 % (11.8-14.3); White Blood Cell 14.7 10^3/uL (4.4-10.8)
[2022-11-29 15:22] LABS: Chloride 103 mmol/L (98-107); Potassium 3.5 mmol/L (3.5-5.1); Sodium 136 mmol/L (136-145)
[2022-11-29 15:23] LABS: Anion Gap 7.3 (5-15); Calcium 8.5 mg/dL (8.5-10.1); Carbon Dioxide 25.7 mmol/L (20-30)
[2022-11-29 15:28] LABS: BUN/Creatinine Ratio 16.3 (10.0-20.0); Blood Urea Nitrogen 17 mg/dL (9-23); Glucose 231 mg/dL (74-106)
[2022-11-29 15:29] LABS: Magnesium 2.2 mg/dL (1.6-2.6)
[2022-11-29] MEDS ORDERED: AMIODARONE BOLUS KIT 100 ML IV ONE (17:30)
[2022-11-29] MEDS ORDERED: POTASSIUM EFFERVESENT TAB 25 MEQ PO ONE (17:30)
[2022-11-29] MEDS ORDERED: AMIODARONE 450mg/250ml AE 250 ML IV SCH ×2 (17:45→23:45)
[2022-11-29] MEDS: FUROSEMIDE 40 MG/4 ML VIAL IV SCH (18:09)
[2022-11-29] MEDS ORDERED: IOHEXOL 350 MG/ML 100ML IJ ONE (18:15)
[2022-11-29] MEDS ORDERED: cefTRIAXone 1GM/50ML D5W 50 ML IV ONE (18:30)
[2022-11-29] MEDS: APIXABAN 5 MG TAB PO SCH (21:57)
[2022-11-29] MEDS: ATORVASTATIN 20 MG TAB PO SCH (21:57)
[2022-11-29] MEDS: CARVEDILOL 3.125 MG TAB PO SCH (21:59)
[2022-11-29] MEDS ORDERED: MELATONIN 5 MG TAB PO PRN (22:00)
[2022-11-29] MEDS ORDERED: MELATONIN 5 MG TAB PO ONE (23:55)
[2022-11-30] MEDS: HYDROcodone-ACET 5/325MG TAB PO PRN (03:41)
[2022-11-30 05:00] VITALS: BP 104/55; PULSE 85; RESP 20; TEMP 98.6; O2SAT 93
[2022-11-30] MEDS: LACTULOSE 20Gm/30ML SOLN PO SCH ×2 (05:18→14:00)
[2022-11-30] MEDS: FUROSEMIDE 40 MG/4 ML VIAL IV SCH ×2 (05:18→18:00)
[2022-11-30] MEDS: ACCU-CHEK COMFORT CURVE STRIP VI SCH ×3 (05:51→18:00)
[2022-11-30] MEDS: InsuLIN REG 1unit/0.01ml Soln (100units/ml) SC SCH ×3 (05:52→18:00)
[2022-11-30] MEDS: EMPAGLIFLOZIN 10 MG TAB PO SCH (06:17)
[2022-11-30 08:00] VITALS: BP 111/61; PULSE 119; PULSE 61; PULSE 85; RESP 18; TEMP 98.6; O2SAT 95
[2022-11-30 08:48] VITALS: BP 111/61; PULSE 64; RESP 19; TEMP 98.1; O2SAT 91
[2022-11-30] MEDS ORDERED: cefTRIAXone 1GM/50ML D5W 50 ML IV SCH (09:00)
[2022-11-30] MEDS: APIXABAN 5 MG TAB PO SCH (09:45)
[2022-11-30] MEDS: ASPirin 81 mg TAB PO SCH (09:46)
[2022-11-30] MEDS: CARVEDILOL 3.125 MG TAB PO SCH (09:46)
[2022-11-30] MEDS: CLOPIDOGREL BISULFATE 75 MG TAB PO SCH (09:46)
[2022-11-30] MEDS ORDERED: AMIO200T33 PO (09:47)
[2022-11-30] MEDS ORDERED: AMIODARONE HCL 200 MG TAB PO SCH (10:00)
[2022-11-30] MEDS ORDERED: SPIRONOLACTONE 25 MG TAB PO SCH (10:00)
[2022-11-30] MEDS ORDERED: LISINOPRIL 5 MG TAB PO SCH (10:00)
[2022-11-30] MEDS ORDERED: HYALURONIDASE 150 UNIT/1 ML SUBCUT ONE (10:15)
[2022-11-30 12:33] VITALS: BP 115/58; PULSE 57; RESP 18; TEMP 98; O2SAT 96
[2022-11-30 16:36] VITALS: BP 104/66; PULSE 76; RESP 16; TEMP 98.1; O2SAT 99
== END 2022-11-30 18:40 | disposition home health service (06) | DRG 280 ==
LOC: EDBD 11:23 → ER 11:23 → TELE 15:42 → TELE-WESTW 11-26 21:47
PROVIDERS: ADMIT Internal Medicine; ATTEND Internal Medicine
DX: I21.4 Non-ST elevation (NSTEMI) myocardial infarction (principal); I50.23 Acute on chronic systolic (congestive) heart failure; E11.65 Type 2 diabetes mellitus with hyperglycemia; E78.5 Hyperlipidemia, unspecified; D72.829 Elevated white blood cell count, unspecified; F43.20 Adjustment disorder, unspecified; I11.0 Hypertensive heart disease with heart failure; I48.0 Paroxysmal atrial fibrillation; I27.20 Pulmonary hypertension, unspecified; I25.10 Atherosclerotic heart disease of native coronary artery without angina pectoris; Z79.02 Long term (current) use of antithrombotics/antiplatelets; Z86.73 Personal history of transient ischemic attack (TIA), and cerebral infarction without residual deficits; Z79.82 Long term (current) use of aspirin; Z83.3 Family history of diabetes mellitus; Z79.899 Other long term (current) drug therapy; Z82.49 Family history of ischemic heart disease and other diseases of the circulatory system; Z91.199 Patient's noncompliance with other medical treatment and regimen due to unspecified reason; Z95.5 Presence of coronary angioplasty implant and graft; Z72.0 Tobacco use; Z71.6 Tobacco abuse counseling
CPT/HCPCS: 36415; 71045; 71046; 71275; 76705; 80048; 80053; 80307; 81001; 82150; 82962; 83605; 83690; 83735; 83880; 84443; 84484; 85025; 85379; 85610; 85730; 87040; 87081; 93005; 93306; 97110; 97163; C9113; G0378; J0696; J1815; J2405; J3470

== ENCOUNTER 2022-12-22 19:03 | Inpatient (IN) | payer BC ==
[~2022-12-22] VITALS: Ht 177.8 cm; Wt 78.7 kg
[~2022-12-22 19:03] MED LIST changes: +AMIO200T33 PO; +ATOR20TA50 PO; +CLOP75TA70 PO; -IBUP-1454 PO; +LISI2.5T47 PO; -SIMV20TA20 PO
[2022-12-22 19:33] VITALS: O2SAT 98
[2022-12-22 19:54] LABS: Basophils # (auto) 0.1 10 ^3/uL (0-0.2); Basophils % (auto) 0.5 % (0.0-2.0); Eosinophils # (auto) 1.1 10 ^3/uL (0-0.8); Eosinophils % (auto) 9.8 % (0.0-7.0); Hematocrit 35.2 % (41.0-53.0); Hemoglobin 11.6 g/dL (13.5-17.5); Lymphocytes % (auto) 18.1 % (10.0-50.0); Mean Corpuscular Hemoglobin 27.8 pg (28.0-32.0); Mean Corpuscular Hgb Conc. 32.9 g/dL (32.0-36.0); Mean Corpuscular Volume 84.4 fL (80.0-100.0); Monocytes % (auto) 8.5 % (0.0-12.0); Neutrophils # (auto) 7.2 10 ^3/uL (1.6-8.6); Neutrophils % (auto) 63.1 % (37.0-80.0); Nucleated Red Blood Cells % 0.1 %; Red Blood Cells 4.17 10^6/uL (4.5-5.90); Red Cell Distribution Width 13.8 % (11.8-14.3); White Blood Cell 11.3 10^3/uL (4.4-10.8)
[2022-12-22 20:00] LABS: Alanine Aminotransferase 23 U/L (7-40); Albumin 3.8 g/dL (3.2-4.8); Alkaline Phosphatase 403 U/L (46-116); Anion Gap 6 (5-15); Aspartate Aminotransferase 51 U/L (13-40); BUN/Creatinine Ratio 13.5 (10.0-20.0); Bilirubin, Total 0.7 mg/dL (0.2-1.0); Blood Urea Nitrogen 14 mg/dL (9-23); Calcium 9.3 mg/dL (8.7-10.4); Carbon Dioxide 29 mmol/L (20-30); Chloride 98 mmol/L (98-107); Glucose 174 mg/dL (74-106); Lipase 52 U/L (12-53); Potassium 4.5 mmol/L (3.5-5.1); Sodium 133 mmol/L (136-145)
[2022-12-22] MEDS ORDERED: DEXTROSE (50%) 50ML SYRG IV PRN (23:30)
[2022-12-22] MEDS ORDERED: ONDANSETRON HCL 4 MG/2 ML VIAL IV PRN (23:30)
[2022-12-22] MEDS ORDERED: NITROGLYCERIN 0.4 MG SL TAB SL PRN ×2 (23:30)
[2022-12-22] MEDS ORDERED: MORPHINE SULFATE INJ 2 MG/ml SYRG IV PRN ×2 (23:30)
[2022-12-23 00:20] LABS: Basophils # (auto) 0.1 10 ^3/uL (0-0.2); Basophils % (auto) 0.5 % (0.0-2.0); Eosinophils # (auto) 1.5 10 ^3/uL (0-0.8); Eosinophils % (auto) 13.5 % (0.0-7.0); Hematocrit 33.7 % (41.0-53.0); Lymphocytes % (auto) 17.9 % (10.0-50.0); Mean Corpuscular Hemoglobin 27.4 pg (28.0-32.0); Mean Corpuscular Hgb Conc. 32.5 g/dL (32.0-36.0); Mean Corpuscular Volume 84.3 fL (80.0-100.0); Monocytes # (auto) 0.9 10 ^3/uL (0-1.3); Neutrophils # (auto) 6.8 10 ^3/uL (1.6-8.6); Neutrophils % (auto) 60.1 % (37.0-80.0); Nucleated Red Blood Cells % 0.1 %; Red Blood Cells 3.99 10^6/uL (4.5-5.90); Red Cell Distribution Width 13.4 % (11.8-14.3); White Blood Cell 11.3 10^3/uL (4.4-10.8)
[2022-12-23] MEDS: SODIUM CHLORIDE 0.9% 1,000 ML IV SCH ×3 (00:52→19:45)
[2022-12-23] MEDS: PIPERACILLIN-TAZOB 3.375GM 100 ML IV SCH ×4 (00:53→22:35)
[2022-12-23 00:55] LABS: INR 1.19 (0.9-1.15); Partial Thromboplastin Time 32.5 SEC (24.5-34.5); Prothrombin Time 12.4 sec (9.3-11.8)
[2022-12-23] MEDS ORDERED: HEPARIN SODIUM (PORCINE) 5000 UNITS/ML 1ML VIAL IV ONE (01:30)
[2022-12-23] MEDS ORDERED: HEPARIN DRIP/D5W 100UNITS/ML 250 ML IV SCH (01:30)
[2022-12-23] MEDS ORDERED: ASPirin 81 mg TAB PO SCH ×2 (04:30→10:00)
[2022-12-23] MEDS ORDERED: PANTOPRAZOLE 40 MG/10 ML VIAL INJ IV SCH (05:15)
[2022-12-23 05:45] LABS: Urine Bacteria NONE SEEN /hpf (None Seen); Urine Blood Negative /uL (Negative); Urine Clarity Clear (Clear); Urine Color Yellow (Yellow); Urine Hyaline Cast FEW /lpf (0 - 2); Urine Mucus FEW (None Seen); Urine Protein, UAD Negative (Negative); Urine Specific Gravity 1.013 (1.001-1.035); Urine WBC 1 /hpf (0 - 3)
[2022-12-23 06:08] LABS: LDL Cholesterol 40 mg/dL (< 100); Triglycerides 61 mg/dL (< 150)
[2022-12-23 06:09] LABS: Cholesterol 77 mg/dL (< 200)
[2022-12-23 06:16] LABS: Alanine Aminotransferase 92 U/L (7-40); Alkaline Phosphatase 539 U/L (46-116); Anion Gap 6 (5-15); BUN/Creatinine Ratio 12.5 (10.0-20.0); Blood Urea Nitrogen 12 mg/dL (9-23); Calcium 8.9 mg/dL (8.7-10.4); Carbon Dioxide 30 mmol/L (20-30); Chloride 100 mmol/L (98-107); Glucose 144 mg/dL (74-106); Potassium 4.1 mmol/L (3.5-5.1); Sodium 136 mmol/L (136-145)
[2022-12-23 06:17] LABS: Albumin 3.7 g/dL (3.2-4.8); Aspartate Aminotransferase 178 U/L (13-40); Bilirubin, Total 1.5 mg/dL (0.2-1.0)
[2022-12-23 06:18] LABS: Total Protein 6.8 g/dL (5.7-8.2)
[2022-12-23] MEDS: InsuLIN REG 1unit/0.01ml Soln (100units/ml) SC SCH ×4 (07:00→22:00)
[2022-12-23] MEDS: ACCU-CHEK COMFORT CURVE STRIP VI SCH ×4 (07:10→22:36)
[2022-12-23 07:32] VITALS: PULSE 82; RESP 15; O2SAT 97
[2022-12-23 08:12] LABS: INR 1.24 (0.9-1.15); Partial Thromboplastin Time 56.8 SEC (24.5-34.5); Prothrombin Time 12.8 sec (9.3-11.8)
[2022-12-23 15:04] LABS: INR 1.22 (0.9-1.15); Partial Thromboplastin Time 42.4 SEC (24.5-34.5); Prothrombin Time 12.6 sec (9.3-11.8)
[2022-12-23] MEDS: HEPARIN DRIP/D5W 100UNITS/ML 250 ML IV SCH (15:17)
[2022-12-23 15:49] LABS: HDL Cholesterol 25 mg/dL (40-59)
[2022-12-23 18:18] VITALS: BP 127/60; PULSE 67; RESP 18; TEMP 99.3; O2SAT 100
[2022-12-23 19:30] VITALS: PULSE 65
[2022-12-23 20:00] VITALS: PULSE 65; RESP 17; O2SAT 100
[2022-12-23 21:42] LABS: INR 1.23 (0.9-1.15); Partial Thromboplastin Time 69.2 SEC (24.5-34.5); Prothrombin Time 12.7 sec (9.3-11.8)
[2022-12-23 21:59] VITALS: BP 120/70; PULSE 64; RESP 17; TEMP 98.7; O2SAT 100
[2022-12-23] MEDS ORDERED: ATORVASTATIN 20 MG TAB PO SCH ×2 (22:00)
[2022-12-23] MEDS ORDERED: AMIODARONE HCL 200 MG TAB PO SCH (22:00)
[2022-12-24] MEDS: HEPARIN DRIP/D5W 100UNITS/ML 250 ML IV SCH (01:04)
[2022-12-24 03:25] LABS: INR 1.26 (0.9-1.15); Partial Thromboplastin Time 63.9 SEC (24.5-34.5)
[2022-12-24] MEDS: SODIUM CHLORIDE 0.9% 1,000 ML IV SCH (04:05)
[2022-12-24 05:00] VITALS: BP 117/54; PULSE 72; RESP 17; TEMP 98.1; O2SAT 97
[2022-12-24] MEDS: ACCU-CHEK COMFORT CURVE STRIP VI SCH (05:30)
[2022-12-24] MEDS: InsuLIN REG 1unit/0.01ml Soln (100units/ml) SC SCH (05:30)
[2022-12-24] MEDS ORDERED: EMPAGLIFLOZIN 10 MG TAB PO SCH (07:00)
[2022-12-24] MEDS: PIPERACILLIN-TAZOB 3.375GM 100 ML IV SCH (07:19)
[2022-12-24 08:30] VITALS: BP 105/67; PULSE 75; RESP 22; TEMP 98.4; O2SAT 98
[2022-12-24] MEDS ORDERED: METOPROLOL SUCCINATE XL 50 MG TAB PO SCH (10:00)
[2022-12-24] MEDS ORDERED: FUROSEMIDE 40 MG TAB PO SCH (10:00)
[2022-12-24] MEDS ORDERED: LISINOPRIL 5 MG TAB PO SCH (10:00)
[2022-12-24] MEDS ORDERED: CLOPIDOGREL BISULFATE 75 MG TAB PO SCH (10:00)
== END 2022-12-24 09:50 | disposition left against medical advice (07) | DRG 444 ==
LOC: EDBD 19:03 → ER 19:03 → TELE 23:40 → TELE-EAST 12-23 17:50
PROVIDERS: ADMIT Nurse Practitioner Family; ATTEND Nurse Practitioner Family
DX: K81.0 Acute cholecystitis (principal); I21.4 Non-ST elevation (NSTEMI) myocardial infarction; I50.22 Chronic systolic (congestive) heart failure; E11.9 Type 2 diabetes mellitus without complications; E78.5 Hyperlipidemia, unspecified; I11.0 Hypertensive heart disease with heart failure; I25.10 Atherosclerotic heart disease of native coronary artery without angina pectoris; I27.20 Pulmonary hypertension, unspecified; Z53.29 Procedure and treatment not carried out because of patient's decision for other reasons; F19.10 Other psychoactive substance abuse, uncomplicated; I48.0 Paroxysmal atrial fibrillation; D64.9 Anemia, unspecified; I25.2 Old myocardial infarction; Z79.01 Long term (current) use of anticoagulants; Z86.73 Personal history of transient ischemic attack (TIA), and cerebral infarction without residual deficits; Z87.891 Personal history of nicotine dependence; Z91.199 Patient's noncompliance with other medical treatment and regimen due to unspecified reason; Z95.5 Presence of coronary angioplasty implant and graft
CPT/HCPCS: 36415; 71045; 74176; 74181; 76705; 80053; 80061; 81001; 82962; 83036; 83690; 83880; 84443; 84484; 85025; 85610; 85730; 87081; 93005; C9113; G0378; J1815; J2543

== ENCOUNTER 2023-04-11 17:33 | Inpatient (IN) | payer BC ==
[~2023-04-11] VITALS: Ht 175.3 cm; Wt 81.8 kg
[2023-04-11 18:15] VITALS: PULSE 135; RESP 24; O2SAT 98
[2023-04-11] MEDS ORDERED: FUROSEMIDE 100 MG/10ML VIAL IV ONE (18:15)
[2023-04-11] MEDS ORDERED: dilTIAZem 25 MG/5 ML VIAL IV ONE (18:15)
[2023-04-11 18:39] LABS: Basophils # (auto) 0.1 10 ^3/uL (0-0.2); Basophils % (auto) 1.1 % (0.0-2.0); Eosinophils # (auto) 0.1 10 ^3/uL (0-0.8); Eosinophils % (auto) 1.1 % (0.0-7.0); Hematocrit 39.2 % (41.0-53.0); Hemoglobin 12.2 g/dL (13.5-17.5); Lymphocytes # (auto) 2.4 10 ^3/uL (0.4-5.4); Lymphocytes % (auto) 23.9 % (10.0-50.0); Mean Corpuscular Hemoglobin 25.3 pg (28.0-32.0); Mean Corpuscular Hgb Conc. 31.1 g/dL (32.0-36.0); Mean Corpuscular Volume 81.4 fL (80.0-100.0); Monocytes # (auto) 1.2 10 ^3/uL (0-1.3); Monocytes % (auto) 12.3 % (0.0-12.0); Neutrophils # (auto) 6.2 10 ^3/uL (1.6-8.6); Neutrophils % (auto) 61.6 % (37.0-80.0); Nucleated Red Blood Cells % 0.2 %; Red Blood Cells 4.81 10^6/uL (4.5-5.90); Red Cell Distribution Width 16.7 % (11.8-14.3); White Blood Cell 10.1 10^3/uL (4.4-10.8)
[2023-04-11 18:47] LABS: Chloride 102 mmol/L (98-107); Potassium 4.2 mmol/L (3.5-5.1); Sodium 135 mmol/L (136-145)
[2023-04-11 18:48] LABS: Anion Gap 13 (5-15); Calcium 9.4 mg/dL (8.5-10.1); Carbon Dioxide 20 mmol/L (20-30)
[2023-04-11 18:53] LABS: BUN/Creatinine Ratio 13.1 (10.0-20.0); Blood Urea Nitrogen 16 mg/dL (9-23); Glucose 172 mg/dL (74-106)
[2023-04-11 19:05] LABS: COVID19 ANTIGEN SOFIA FIA NEGATIVE (NEGATIVE)
[2023-04-11 19:06] LABS: Rapid Influenza A Negative (Negative); Rapid Influenza B Negative (Negative)
[2023-04-11] MEDS ORDERED: dilTIAZem 125mg/125ml BAG KIT 125 ML IV ONE (19:30)
[2023-04-11 19:45] VITALS: PULSE 143; RESP 22; O2SAT 97
[2023-04-11 20:06] LABS: Lactic Acid w/Reflex 4.4 mmol/L (0.4-2.0)
[2023-04-11] MEDS ORDERED: IOHEXOL 350 MG/ML 100ML IJ ONE ×3 (20:18→22:52)
[2023-04-11] MEDS ORDERED: ASPirin 325 MG TAB PO ONE (21:15)
[2023-04-11] MEDS ORDERED: AMIODARONE BOLUS KIT 100 ML IV ONE (22:00)
[2023-04-11] MEDS ORDERED: HEPARIN SODIUM (PORCINE) 5000 UNITS/ML 1ML VIAL IV ONE (22:00)
[2023-04-11] MEDS ORDERED: NITROGLYCERIN 0.4 MG SL TAB SL PRN (22:00)
[2023-04-11] MEDS ORDERED: ACETAMINOPHEN 325 MG TAB PO PRN (22:00)
[2023-04-11] MEDS ORDERED: DOCUSATE SOD 100 MG CAP PO PRN (22:00)
[2023-04-11] MEDS ORDERED: SODIUM CHLORIDE 0.9% 500 ML IV ONE (22:00)
[2023-04-11] MEDS ORDERED: HYDROcodone-ACET 5/325MG TAB PO PRN (22:00)
[2023-04-11] MEDS ORDERED: MORPHINE SULFATE INJ 2 MG/ml SYRG IV PRN (22:00)
[2023-04-11] MEDS ORDERED: HEPARIN DRIP/D5W 100UNITS/ML 250 ML IV SCH (22:00)
[2023-04-11] MEDS ORDERED: VANCOMYCIN PER PHARMACY 0 MG IV SCH (22:00)
[2023-04-11] MEDS ORDERED: AMIODARONE 450mg/250ml AE 250 ML IV SCH (22:15)
[2023-04-11] MEDS ORDERED: DEXTROSE (50%) 50ML SYRG IV PRN (22:15)
[2023-04-11 22:27] LABS: Urine Epithelial Cast None Seen /hpf (<5)
[2023-04-11 22:39] LABS: Urine Bacteria NONE SEEN /hpf (None Seen); Urine Blood 1+ /uL (Negative); Urine Clarity Clear (Clear); Urine Color Colorless (Yellow); Urine Protein, UAD Negative (Negative); Urine Specific Gravity 1.012 (1.001-1.035); Urine Urobilinogen Normal (Negative); Urine WBC 5 /hpf (0 - 3)
[2023-04-11] MEDS ORDERED: PIPERACILLIN-TAZOB 3.375GM 100 ML IV ONE (22:45)
[2023-04-11 22:51] LABS: INR 1.48 (0.9-1.15); Partial Thromboplastin Time 24.8 SEC (24.5-34.5); Prothrombin Time 15.1 sec (9.3-11.8)
[2023-04-11] MEDS ORDERED: VANCOMYCIN 1GM/200ML 200 ML IV ONE (23:00)
[2023-04-12] VITALS (10 sets, daily range): BP systolic 95; BP diastolic 70; PULSE 90–133; RESP 20–36; TEMP 98.8; O2SAT 91–99
[2023-04-12] MEDS ORDERED: NOREPINEPHRINE 8 MG/250ML KIT 250 ML IV SCH (05:45)
[2023-04-12] MEDS ORDERED: ALBUTEROL SULF 2.5 MG/0.5ML(0.5%) NEB SOLN NEB ONE (05:45)
[2023-04-12] MEDS ORDERED: IPRATROPIUM BROM 0.5 MG/2.5ML INH SOL NEB ONE (05:45)
[2023-04-12] MEDS: AMIODARONE 450mg/250ml AE 250 ML IV SCH ×2 (05:58→08:18)
[2023-04-12] MEDS: LEVALBUTEROL HCL 1.25 MG/3 ML NEB NEB SCH ×5 (06:00→22:39)
[2023-04-12] MEDS ORDERED: SODIUM CHLORIDE 0.9% 1,000 ML IV ONE (06:00)
[2023-04-12] MEDS: IPRATROPIUM BROM 0.5 MG/2.5ML INH SOL NEB SCH ×5 (06:00→22:40)
[2023-04-12 06:07] LABS: Anion Gap 17 (5-15); Carbon Dioxide 18 mmol/L (20-30); Chloride 99 mmol/L (98-107); Potassium 4.3 mmol/L (3.5-5.1); Sodium 134 mmol/L (136-145)
[2023-04-12 06:09] LABS: Calcium 9.4 mg/dL (8.5-10.1)
[2023-04-12 06:13] LABS: Blood Urea Nitrogen 14 mg/dL (9-23); Glucose 132 mg/dL (74-106)
[2023-04-12 06:15] LABS: Basophils # (auto) 0.1 10 ^3/uL (0-0.2); Eosinophils # (auto) 0 10 ^3/uL (0-0.8); Hemoglobin 12.3 g/dL (13.5-17.5); Nucleated Red Blood Cells % 0.1 %; White Blood Cell 12.3 10^3/uL (4.4-10.8)
[2023-04-12 06:19] LABS: Basophils % (auto) 1.1 % (0.0-2.0); Eosinophils % (auto) 0.2 % (0.0-7.0); Hematocrit 39.2 % (41.0-53.0); Lymphocytes # (auto) 2.1 10 ^3/uL (0.4-5.4); Lymphocytes % (auto) 16.8 % (10.0-50.0); Mean Corpuscular Hemoglobin 25.7 pg (28.0-32.0); Mean Corpuscular Hgb Conc. 31.3 g/dL (32.0-36.0); Mean Corpuscular Volume 82.1 fL (80.0-100.0); Monocytes # (auto) 1.8 10 ^3/uL (0-1.3); Monocytes % (auto) 14.6 % (0.0-12.0); Neutrophils # (auto) 8.3 10 ^3/uL (1.6-8.6); Neutrophils % (auto) 67.3 % (37.0-80.0); Red Blood Cells 4.78 10^6/uL (4.5-5.90); Red Cell Distribution Width 16.3 % (11.8-14.3)
[2023-04-12] MEDS: PIPERACILLIN-TAZOB 3.375GM 100 ML IV SCH ×3 (06:19→22:12)
[2023-04-12 06:22] LABS: INR 1.64 (0.9-1.15); Prothrombin Time 16.7 sec (9.3-11.8)
[2023-04-12 06:35] LABS: Lactic Acid w/Reflex 6.2 mmol/L (0.4-2.0)
[2023-04-12] MEDS: ACCU-CHEK COMFORT CURVE STRIP VI SCH ×4 (06:38→21:45)
[2023-04-12] MEDS: InsuLIN REG 1unit/0.01ml Soln (100units/ml) SC SCH ×4 (06:38→21:46)
[2023-04-12 06:49] LABS: Partial Thromboplastin Time 89.4 SEC (24.5-34.5)
[2023-04-12] MEDS ORDERED: MAGNESIUM SULFATE 1GM/100ML 100 ML IV ONE ×2 (07:30→10:15)
[2023-04-12] MEDS ORDERED: FUROSEMIDE 20 MG/2 ML VIAL IV ONE (07:30)
[2023-04-12 07:39] LABS: LDL Cholesterol 50 mg/dL (< 100); Triglycerides 57 mg/dL (< 150)
[2023-04-12 07:41] LABS: Cholesterol 84 mg/dL (< 200); HDL Cholesterol 28 mg/dL (40-59)
[2023-04-12] MEDS ORDERED: ASPirin 81 mg TAB PO SCH (10:00)
[2023-04-12] MEDS ORDERED: DIGOXIN (250MCG/ML) 2 ML AMPULE IV ONE ×3 (10:00→14:00)
[2023-04-12] MEDS ORDERED: CLOPIDOGREL BISULFATE 75 MG TAB PO ONE (10:00)
[2023-04-12] MEDS ORDERED: METOPROLOL SUCCINATE XL 50 MG TAB PO SCH (10:00)
[2023-04-12] MEDS: ENOXAPARIN SOD 100 MG/1 ML SYRINGE SC SCH ×2 (10:30→22:12)
[2023-04-12] MEDS: ONDANSETRON HCL 4 MG/2 ML VIAL IV PRN ×3 (12:23→23:31)
[2023-04-12 12:43] LABS: Amphetamine Screen, Urine Pos (NEGATIVE); Barbiturate Scree,Urine Neg (NEGATIVE); Benzodiazephine Screen, Urine Neg (NEGATIVE); Cannabinoid Screen, Urine Neg (NEGATIVE); Cocaine Screen, Urine Neg (NEGATIVE); Opiate Scree,Urine Neg (NEGATIVE); Phencyclidine Screen, Urine Neg (NEGATIVE)
[2023-04-12] MEDS ORDERED: MAALOX PLUS or MAALOX 30 ML PO PRN (14:15)
[2023-04-12] MEDS ORDERED: DIGO0.12 PO (14:46)
[2023-04-12] MEDS ORDERED: CARV6.2551 PO (14:46)
[2023-04-12] MEDS: NOREPINEPHRINE BITARTRATE 32 MG in SODIUM CHL 0.9% 218 ML IV SCH (16:11)
[2023-04-12] MEDS: FUROSEMIDE 20 MG/2 ML VIAL IV SCH (18:26)
[2023-04-12] MEDS: TAMSULOSIN HYDROCHLORIDE 0.4 MG CAP PO SCH (18:26)
[2023-04-12] MEDS ORDERED: MICAFUNGIN SODIUM 100 MG in SODIUM CHL 0.9% 100 ML IV ONE (19:00)
[2023-04-12] MEDS ORDERED: VANCOMYCIN 1GM/200ML 200 ML IV SCH (20:00)
[2023-04-12] MEDS ORDERED: ATORVASTATIN 20 MG TAB PO SCH (22:00)
[2023-04-13] VITALS (9 sets, daily range): BP systolic 97–104; BP diastolic 41–59; PULSE 72–94; RESP 20–31; O2SAT 88–100
[2023-04-13] MEDS: AMIODARONE 450mg/250ml AE 250 ML IV SCH (00:49)
[2023-04-13] MEDS: PANTOPRAZOLE 40mg/50ML NS AE 50 ML IV SCH ×5 (01:36→22:41)
[2023-04-13] MEDS: LEVALBUTEROL HCL 1.25 MG/3 ML NEB NEB SCH ×6 (02:01→22:08)
[2023-04-13] MEDS: IPRATROPIUM BROM 0.5 MG/2.5ML INH SOL NEB SCH ×6 (02:01→22:07)
[2023-04-13 04:33] LABS: Basophils # (auto) 0 10 ^3/uL (0-0.2); Eosinophils # (auto) 0 10 ^3/uL (0-0.8); Hemoglobin 10.9 g/dL (13.5-17.5); Lymphocytes # (auto) 1.4 10 ^3/uL (0.4-5.4); Mean Corpuscular Hemoglobin 25.5 pg (28.0-32.0); Red Blood Cells 4.29 10^6/uL (4.5-5.90)
[2023-04-13 04:35] LABS: Basophils % (auto) 0.2 % (0.0-2.0); Eosinophils % (auto) 0.2 % (0.0-7.0); Lymphocytes % (auto) 6.3 % (10.0-50.0); Mean Corpuscular Hgb Conc. 28.8 g/dL (32.0-36.0); Mean Corpuscular Volume 88.8 fL (80.0-100.0); Monocytes # (auto) 2.1 10 ^3/uL (0-1.3); Monocytes % (auto) 9.3 % (0.0-12.0); Nucleated Red Blood Cells % 0.1 %; Red Cell Distribution Width 17.1 % (11.8-14.3); White Blood Cell 22.6 10^3/uL (4.4-10.8)
[2023-04-13 04:56] LABS: Albumin 3.5 g/dL (3.2-4.8); Alkaline Phosphatase 244 U/L (46-116); Anion Gap 22 (5-15); BUN/Creatinine Ratio 10.3 (10.0-20.0); Bilirubin, Total 2.9 mg/dL (0.2-1.0); Calcium 8.1 mg/dL (8.7-10.4); Carbon Dioxide 11 mmol/L (20-30); Chloride 99 mmol/L (98-107); Glucose 109 mg/dL (74-106); Magnesium 2.3 mg/dL (1.6-2.6); Potassium 5.4 mmol/L (3.5-5.1); Sodium 132 mmol/L (136-145); Total Protein 6.4 g/dL (5.7-8.2)
[2023-04-13 05:20] LABS: Lactic Acid w/Reflex 10.7 mmol/L (0.4-2.0)
[2023-04-13 05:30] LABS: Alanine Aminotransferase 4779 U/L (7-40); Aspartate Aminotransferase > 6000 U/L (13-40); Blood Urea Nitrogen 33 mg/dL (9-23)
[2023-04-13] MEDS: ENOXAPARIN SOD 100 MG/1 ML SYRINGE SC SCH (05:47)
[2023-04-13] MEDS: PIPERACILLIN-TAZOB 3.375GM 100 ML IV SCH (06:00)
[2023-04-13] MEDS: FUROSEMIDE 20 MG/2 ML VIAL IV SCH ×2 (06:00→18:00)
[2023-04-13] MEDS ORDERED: SODIUM ZIRCONIUM CYCL 10 GM PAK PO ONE (06:15)
[2023-04-13] MEDS ORDERED: DIGOXIN IMMUNEFAB PER PHARMACY 0 ML IV ONE (06:15)
[2023-04-13] MEDS: ACCU-CHEK COMFORT CURVE STRIP VI SCH ×4 (06:24→22:41)
[2023-04-13] MEDS: InsuLIN REG 1unit/0.01ml Soln (100units/ml) SC SCH ×3 (06:24→17:00)
[2023-04-13] MEDS ORDERED: SODIUM CHL 0.9% IV ONE (07:00)
[2023-04-13] MEDS ORDERED: DIGOXIN IMMUNE FAB IV ONE (07:00)
[2023-04-13] MEDS ORDERED: PHENYLEPHRINE INJ 80 MG in SODIUM CHL 0.9% 242 ML IV SCH (08:00)
[2023-04-13] MEDS ORDERED: SODIUM CHLORIDE 0.9% 1,000 ML IV ONE (08:00)
[2023-04-13] MEDS ORDERED: DOPamine 1600MCG/ML D5W 250 ML IV SCH (09:45)
[2023-04-13] MEDS ORDERED: DIGOXIN 0.125 MG TAB PO SCH (10:00)
[2023-04-13] MEDS ORDERED: ENOXAPARIN SOD 100 MG/1 ML SYRINGE SC SCH (10:00)
[2023-04-13] MEDS ORDERED: AMIODARONE HCL 200 MG TAB PO SCH (10:00)
[2023-04-13] MEDS ORDERED: EMPAGLIFLOZIN 10 MG TAB PO SCH (10:00)
[2023-04-13] MEDS ORDERED: CLOPIDOGREL BISULFATE 75 MG TAB PO SCH (10:00)
[2023-04-13] MEDS ORDERED: LIDOCAINE 1% (LOCAL ANESTH.) PF 5ml SDV ID ONE (10:00)
[2023-04-13] MEDS ORDERED: MICAFUNGIN SODIUM 100 MG in SODIUM CHL 0.9% 100 ML IV SCH (10:00)
[2023-04-13] MEDS: SODIUM CHLOR 0.9% PF (SALINE LOCK) 10ML VIAL/SYR IV SCH ×2 (11:35→21:39)
[2023-04-13 11:39] LABS: Lactic Acid w/Reflex 11.1 mmol/L (0.4-2.0)
[2023-04-13] MEDS ORDERED: HYDROCORTISONE SOD SUCC 100 MG/2ML INJ VIAL IV STA (12:38)
[2023-04-13] MEDS ORDERED: PIPERACILLIN-TAZOB 3.375GM 100 ML IV SCH (13:00)
[2023-04-13] MEDS: VASOPRESSIN 20 UNITS in SODIUM CHL 0.9% 99 ML IV SCH ×2 (13:49→22:53)
[2023-04-13 13:50] LABS: Hematocrit 36.4 % (41.0-53.0); Hemoglobin 10.7 g/dL (13.5-17.5)
[2023-04-13] MEDS ORDERED: INSULIN LANTUS (GLARGINE) 1 /0.01ml (100units/ml) SC ONE (14:00)
[2023-04-13] MEDS: SODIUM CHLORIDE 0.9% 1,000 ML IV SCH ×2 (14:00→20:40)
[2023-04-13] MEDS ORDERED: PATIENTS OWN MEDICATION (zyvox 600 MG) IV SCH (14:00)
[2023-04-13] MEDS ORDERED: DEXTROSE (50%) 50ML SYRG IV PRN (14:00)
[2023-04-13 14:30] LABS: Base Excess -21.4 mmol/L (-2.0-2.0)
[2023-04-13] MEDS ORDERED: fentaNYL Drip 2500mCg/250mlNS 250 ML IV SCH (14:30)
[2023-04-13] MEDS ORDERED: SUCCINYLCHOLINE CHLORIDE 20 MG/ML 10ML VIAL IV ONE (14:30)
[2023-04-13] MEDS ORDERED: ETOMIDATE (2MG/ML) 20ML VIAL IV ONE (14:30)
[2023-04-13] MEDS ORDERED: SODIUM BICARBONATE 8.4 % INJ 50ML VIAL IV ONE ×3 (14:30→17:40)
[2023-04-13] MEDS: INSULIN DRIP 100 UNIT/100ML 100 ML IV SCH ×2 (14:58→19:11)
[2023-04-13] MEDS: D5W/SOD CHLO 0.9% 1,000 ML IV SCH ×2 (15:34→22:09)
[2023-04-13] MEDS: OCTREOTIDE ACETATE 100 MCG/ML VL SUBCUT SCH ×2 (15:39→22:41)
[2023-04-13 16:41] LABS: Lactic Acid w/Reflex 12.7 mmol/L (0.4-2.0)
[2023-04-13] MEDS: TAMSULOSIN HYDROCHLORIDE 0.4 MG CAP PO SCH (18:00)
[2023-04-13] MEDS: MIDAZOLAM DRIP 50 mg/50mL 50 ML IV SCH ×2 (18:07→21:55)
[2023-04-13] MEDS: NOREPINEPHRINE BITARTRATE 32 MG in SODIUM CHL 0.9% 218 ML IV SCH (18:30)
[2023-04-13 18:46] LABS: Albumin 2.8 g/dL (3.2-4.8); Alkaline Phosphatase 195 U/L (46-116); Anion Gap 21.00001 (5-15); BUN/Creatinine Ratio 10.8 (10.0-20.0); Blood Urea Nitrogen 36 mg/dL (9-23); Calcium 6.1 mg/dL (8.7-10.4); Chloride 104 mmol/L (98-107); Magnesium 2.1 mg/dL (1.6-2.6); Potassium 4.3 mmol/L (3.5-5.1); Sodium 135 mmol/L (136-145)
[2023-04-13 18:47] LABS: Bilirubin, Total 2.4 mg/dL (0.2-1.0); Total Protein 5.1 g/dL (5.7-8.2)
[2023-04-13 18:57] LABS: Glucose 215 mg/dL (74-106)
[2023-04-13 18:58] LABS: Alanine Aminotransferase 3248 U/L (7-40); Aspartate Aminotransferase > 6000 U/L (13-40)
[2023-04-13 19:08] LABS: Carbon Dioxide < 10 mmol/L (20-30)
[2023-04-13 19:50] LABS: Hemoglobin 10.1 g/dL (13.5-17.5)
[2023-04-13] MEDS: SODIUM BICARBONATE 50ML VIAL 150 ML in D5W 5% 1,000 ML IV SCH (20:00)
[2023-04-13] MEDS ORDERED: LINEZOLID 600MG/300ML 300 ML IV SCH (22:00)
[2023-04-13 22:07] LABS: Base Excess -8.8 mmol/L (-2.0-2.0)
[2023-04-13] MEDS ORDERED: SODIUM CHLORIDE 0.9% 500 ML IV ONE (22:15)
[2023-04-14] VITALS (8 sets, daily range): BP systolic 85–124; BP diastolic 46–65; PULSE 73–127; RESP 27–30; TEMP 98.3; O2SAT 63–100
[2023-04-14 00:33] LABS: Hematocrit 32.8 % (41.0-53.0)
[2023-04-14 00:34] LABS: Chloride 102 mmol/L (98-107); Potassium 3.8 mmol/L (3.5-5.1); Sodium 136 mmol/L (136-145)
[2023-04-14 00:35] LABS: Anion Gap 16 (5-15); Calcium 6.6 mg/dL (8.7-10.4); Carbon Dioxide 18 mmol/L (20-30)
[2023-04-14 00:40] LABS: BUN/Creatinine Ratio 10.1 (10.0-20.0); Blood Urea Nitrogen 40 mg/dL (9-23); Glucose 240 mg/dL (74-106); Magnesium 2.3 mg/dL (1.6-2.6)
[2023-04-14 00:42] LABS: Phosphorus 6.9 mg/dL (2.4-5.1)
[2023-04-14] MEDS: ACCU-CHEK COMFORT CURVE STRIP VI SCH ×6 (00:49→09:09)
[2023-04-14] MEDS: IPRATROPIUM BROM 0.5 MG/2.5ML INH SOL NEB SCH ×2 (01:51→06:45)
[2023-04-14] MEDS: LEVALBUTEROL HCL 1.25 MG/3 ML NEB NEB SCH ×2 (01:52→06:45)
[2023-04-14] MEDS: SODIUM CHLORIDE 0.9% 1,000 ML IV SCH (03:20)
[2023-04-14] MEDS: D5W/SOD CHLO 0.9% 1,000 ML IV SCH (03:20)
[2023-04-14] MEDS: MIDAZOLAM DRIP 50 mg/50mL 50 ML IV SCH (03:55)
[2023-04-14] MEDS ORDERED: PIPERACILLIN-TAZOB 3.375GM 100 ML IV SCH (04:00)
[2023-04-14] MEDS: PANTOPRAZOLE 40mg/50ML NS AE 50 ML IV SCH ×2 (04:22→06:45)
[2023-04-14] MEDS: FUROSEMIDE 20 MG/2 ML VIAL IV SCH (06:00)
[2023-04-14] MEDS ORDERED: DEXTROSE (50%) 50ML SYRG IV PRN (06:15)
[2023-04-14] MEDS ORDERED: INSULIN DRIP 100 UNIT/100ML 100 ML IV SCH (06:15)
[2023-04-14] MEDS: SODIUM BICARBONATE 50ML VIAL 150 ML in D5W 5% 1,000 ML IV SCH (06:20)
[2023-04-14] MEDS: OCTREOTIDE ACETATE 100 MCG/ML VL SUBCUT SCH (06:22)
[2023-04-14 06:41] LABS: Basophils # (auto) 0 10 ^3/uL (0-0.2); Hematocrit 26.7 % (41.0-53.0); Lymphocytes # (auto) 1.8 10 ^3/uL (0.4-5.4); Mean Corpuscular Hemoglobin 25.3 pg (28.0-32.0); Mean Corpuscular Hgb Conc. 30.5 g/dL (32.0-36.0); Mean Corpuscular Volume 82.9 fL (80.0-100.0); Monocytes # (auto) 1.6 10 ^3/uL (0-1.3); Nucleated Red Blood Cells % 0.2 %
[2023-04-14 06:45] LABS: Anion Gap 15 (5-15); Basophils % (auto) 0.2 % (0.0-2.0); Carbon Dioxide 20 mmol/L (20-30); Chloride 102 mmol/L (98-107); Eosinophils # (auto) 0.1 10 ^3/uL (0-0.8); Eosinophils % (auto) 0.5 % (0.0-7.0); Hemoglobin 8.1 g/dL (13.5-17.5); Neutrophils # (auto) 19.3 10 ^3/uL (1.6-8.6); Neutrophils % (auto) 84.3 % (37.0-80.0); Potassium 3.3 mmol/L (3.5-5.1); Red Blood Cells 3.21 10^6/uL (4.5-5.90); Red Cell Distribution Width 16.4 % (11.8-14.3); Sodium 137 mmol/L (136-145); White Blood Cell 22.8 10^3/uL (4.4-10.8)
[2023-04-14 06:50] LABS: Glucose 228 mg/dL (74-106)
[2023-04-14 06:51] LABS: Blood Urea Nitrogen 41 mg/dL (9-23)
[2023-04-14 06:52] LABS: Magnesium 2.1 mg/dL (1.6-2.6)
[2023-04-14 06:53] LABS: Phosphorus 6.8 mg/dL (2.4-5.1)
[2023-04-14] MEDS ORDERED: EPINEPHrine HCL 250 ML IV ONE (06:59)
[2023-04-14] MEDS ORDERED: EPINEPHrine HCL 250 ML IV SCH (07:00)
[2023-04-14 07:03] LABS: Calcium 5.7 mg/dL (8.7-10.4)
[2023-04-14 08:06] LABS: Base Excess -7.2 mmol/L (-2.0-2.0)
[2023-04-14] MEDS ORDERED: DOPamine 1600MCG/ML D5W 250 ML IV SCH (09:00)
[2023-04-14] MEDS ORDERED: POTASSIUM CHL 20MEQ/100ML 100 ML IV ONE (09:00)
[2023-04-14] MEDS ORDERED: INSULIN LANTUS (GLARGINE) 1 /0.01ml (100units/ml) SC SCH (10:00)
[2023-04-14 10:19] LABS: Hematocrit 24.1 % (41.0-53.0); Hemoglobin 7.3 g/dL (13.5-17.5)
[2023-04-16] MEDS ORDERED: DIGOXIN 0.125 MG TAB PO SCH (10:00)
== END 2023-04-14 10:48 | DRG 208 ==
LOC: EDUNIT# 17:33 → EDBD 17:33 → ER 17:33 → TELE 22:09
PROVIDERS: ADMIT Nurse Practitioner Family; ATTEND Nurse Practitioner Family
PROC: 05HM33Z Insertion of Infusion Device into Right Internal Jugular Vein, Percutaneous Approach (ICD-10-PCS; 2023-04-13)
PROC: B543ZZA Ultrasonography of Right Jugular Veins, Guidance (ICD-10-PCS; 2023-04-13)
PROC: 5A1935Z Respiratory Ventilation, Less than 24 Consecutive Hours (ICD-10-PCS; 2023-04-13)
PROC: 0BH17EZ Insertion of Endotracheal Airway into Trachea, Via Natural or Artificial Opening (ICD-10-PCS; 2023-04-13)
PROC: 30233N1 Transfusion of Nonautologous Red Blood Cells into Peripheral Vein, Percutaneous Approach (ICD-10-PCS; principal; 2023-04-14)
PROC: 5A12012 Performance of Cardiac Output, Single, Manual (ICD-10-PCS; 2023-04-14)
DX: J96.01 Acute respiratory failure with hypoxia (principal); E11.10 Type 2 diabetes mellitus with ketoacidosis without coma; I21.A1 Myocardial infarction type 2; I50.23 Acute on chronic systolic (congestive) heart failure; K72.00 Acute and subacute hepatic failure without coma; I13.0 Hypertensive heart and chronic kidney disease with heart failure and stage 1 through stage 4 chronic kidney disease, or unspecified chronic kidney disease; I48.92 Unspecified atrial flutter; N17.9 Acute kidney failure, unspecified; K92.0 Hematemesis; J96.21 Acute and chronic respiratory failure with hypoxia; E11.65 Type 2 diabetes mellitus with hyperglycemia; E78.5 Hyperlipidemia, unspecified; I48.0 Paroxysmal atrial fibrillation; E11.22 Type 2 diabetes mellitus with diabetic chronic kidney disease; F10.10 Alcohol abuse, uncomplicated; I25.10 Atherosclerotic heart disease of native coronary artery without angina pectoris; Z20.822 Contact with and (suspected) exposure to COVID-19; I27.20 Pulmonary hypertension, unspecified; F19.10 Other psychoactive substance abuse, uncomplicated; N18.9 Chronic kidney disease, unspecified; Z86.73 Personal history of transient ischemic attack (TIA), and cerebral infarction without residual deficits; Z79.4 Long term (current) use of insulin; Z87.891 Personal history of nicotine dependence; Z98.61 Coronary angioplasty status; Z91.199 Patient's noncompliance with other medical treatment and regimen due to unspecified reason; Z79.899 Other long term (current) drug therapy; I95.9 Hypotension, unspecified
CPT/HCPCS: 36415; 36569; 36600; 71045; 71275; 74176; 76705; 76775; 80048; 80053; 80061; 80162; 80307; 80320; 81001; 82010; 82306; 82805; 83036; 83605; 83735; 83880; 83970; 84100; 84443; 84484; 85014; 85018; 85025; 85379; 85610; 85730; 86850; 86900; 86901; 86920; 87040; 87070; 87077; 87205; 87426; 87804; 92950; 93005; 93306; 93970; 94003; 94640; 96365; 96375; 96376; 99291; G0378; J0171; J0330; J1815; J2248; J2250; J2405; J2543